=== PATIENT | female | born 1930 | race Hispanic/Latino ===

== ENCOUNTER 2017-02-21 11:07 | Emergency (ER) | payer MEDICARE, MEDICAID ==
[2017-02-21 11:08] VITALS: BMI 17.6
[2017-02-21 11:31] VITALS: RESP 20; TEMP 97.3; O2SAT 99
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
--- NOTE | 2017-02-21 13:41 | CT ---
PROCEDURE: CT HEAD WITHOUT CONTRAST. HISTORY: HEAD INJURY R/O BLEED/FRACTURE COMPARISON: Comparison/correlation made with concurrent CT scan orbits TECHNIQUE: Axial computed tomography images were obtained through the head/brain without intravenous contrast. Radiation dose: Total exam DLP = 392.16 mGy-cm. This CT exam was performed using one or more of the following dose reduction techniques: Automated exposure control, adjustment of the mA and/or kV according to patient size, and/or use of iterative reconstruction technique. FINDINGS: HEMORRHAGE: No acute parenchymal, subarachnoid or extra-axial hemorrhage. BRAIN: Mild chronic periventricular white matter ischemic changes. There also appear to be a few scattered chronic bilateral basal nuclei lacunar type infarcts. Moderate generalized volume loss. Vascular calcifications both carotid siphons VENTRICLES: Unremarkable. No hydrocephalus. CALVARIUM: No acute calvarial fracture seen. Bilateral nasal bone fracture deformities are present with a minor overlying soft tissue swelling and a small amount subcutaneous air. In addition, there is mild bilateral supraorbital/inferior frontal soft tissue swelling. A few tiny bubbles of subcutaneous air in the left supraorbital region suggests overlying laceration. . Additionally, there also appears to be some minor pre maxillary soft tissue swelling PARANASAL SINUSES: Well-developed and currently well-aerated. There are no fluid levels seen to suggest acute hemorrhage or sinusitis. Minimal mucosal thickening left maxillary antrum MASTOID AIR CELLS: Unremarkable as visualized. No inflammatory changes. OTHER FINDINGS: Orbits and contents unremarkable. Globes intact and lenses appropriately located. There are no retrobulbar hemorrhages or collections seen. IMPRESSION: No acute intracranial hemorrhage. Mild chronic white matter and basal nuclei ischemic changes. Moderate volume loss. Bilateral nasal bone fractures with minor overlying soft tissue swelling and small amount of subcutaneous air. Mild bilateral supraorbital/ inferior frontal soft tissue swelling with a few scattered bubbles of air left supraorbital region suggesting overlying laceration.
--- NOTE | 2017-02-21 13:43 | CT ---
PROCEDURE: CT scan orbits dated 02/21/2017 HISTORY: Left periorbital injury. Rule out fracture COMPARISON: Cord comparison made with concurrent CT scan brain TECHNIQUE: Helical/transaxial CT images of the orbits were obtained. Coronal and sagittal reformats were generated. . Radiation dose: Total exam DLP = 347.82 mGy-cm. This CT exam was performed using one or more of the following dose reduction techniques: Automated exposure control, adjustment of the mA and/or kV according to patient size, and/or use of iterative reconstruction technique. The current study reveals bilateral nasal bone fracture deformities with minor overlying soft tissue swelling and small amount subcutaneous air. Additionally, there is mild bilateral supraorbital/infer frontal soft tissue swelling. Few bubbles of subcutaneous air in the left supraorbital region suggest overlying laceration. There appears to be mild premaxillary soft tissue swelling. There are no other fractures. Bony orbits intact. The globes intact and lenses appropriately located. There are no retrobulbar hemorrhages or collections. Optic nerves and extraocular musculature unremarkable. . The visualized paranasal sinuses well-developed and currently well-aerated. There are no fluid levels seen to suggest acute hemorrhage or sinusitis. Minimal mucosal thickening left maxillary antrum. IMPRESSION: Bilateral nasal bone fracture deformities are present with a minor overlying soft tissue swelling and a small amount subcutaneous air. In addition, there is mild bilateral supraorbital/inferior frontal soft tissue swelling. A few tiny bubbles of subcutaneous air in the left supraorbital region suggests overlying laceration. . Additionally, there also appears to be some minor pre maxillary soft tissue swelling
[2017-02-21 15:41] VITALS: BP 134/72; PULSE 74
--- NOTE | 2017-02-21 15:48 | RAD ---
PROCEDURE: Radiographs of the pelvis and bilateral hips focal HISTORY: fall, hip pain COMPARISON: None. FINDINGS: BONES: No evidence of acute displaced fracture nor dislocation. . 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 SOFT TISSUES: Vascular calcifications are present. OTHER FINDINGS: None. No acute fracture nor dislocation. Mild DJD both hip joints. IMPRESSION: Limited study as described. No definitive evidence of acute displaced fracture nor dislocation. If symptoms persist or occult fracture suspected clinically recommend followup CT scan of the pelvis and hips. 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
== END 2017-02-21 17:56 | disposition home or self-care (01) ==
LOC: C.ER 11:07
DX: S02.2XXA Fracture of nasal bones, initial encounter for closed fracture (principal); S01.112A Laceration without foreign body of left eyelid and periocular area, initial encounter; W17.89XA Other fall from one level to another, initial encounter; Y92.129 Unspecified place in nursing home as the place of occurrence of the external cause; I10 Essential (primary) hypertension; F03.90 Unspecified dementia, unspecified severity, without behavioral disturbance, psychotic disturbance, mood disturbance, and anxiety

== ENCOUNTER 2017-03-17 03:57 | Emergency (ER) | payer MEDICARE, MEDICAID ==
[2017-03-17 03:58] VITALS: BMI 17.6
[2017-03-17 04:29] LABS: BASO % 0.2 % (0.0-2.0); EOS # 0.1 K/uL (0.0-0.7); EOS % 0.6 % (0.0-4.0); HEMATOCRIT 42.5 % (34.0-47.0); LYMPH # 4.2 K/uL (1.0-4.3); LYMPH % 30.6 % (20.0-40.0); MEAN CORPUSCULAR HEMOGLOBIN 30.2 pg (27.0-31.0); MEAN CORPUSCULAR HGB CONC 31.2 g/dL (33.0-37.0); MEAN PLATELET VOLUME 8.5 fL (7.2-11.7); MONO # 0.8 K/uL (0.0-0.8); NRBC % 0.2 % (0.0-2.0); RED CELL DISTRIBUTION WIDTH 14.6 % (11.5-14.5); WHITE BLOOD COUNT 13.7 K/uL (4.8-10.8)
[2017-03-17 04:31] LABS: VENOUS BLOOD GAS BASE EXCESS -17.9 mmol/L (0.0-2.0); VENOUS BLOOD GAS PCO2 80 mmHg (40-60); VENOUS BLOOD PH 6.91 (7.32-7.43)
[2017-03-17 04:37] LABS: INR 1.5
[2017-03-17 04:42] LABS: ALB/GLOB RATIO 0.9 (1.0-2.1); BILIRUBIN,TOTAL 0.8 mg/dL (0.2-1.3)
[2017-03-17 04:43] LABS: CALCIUM 8.7 mg/dl (8.6-10.4)
--- NOTE | 2017-03-17 04:46 | C.PDOC ---
History Of Present Illness Patient brought to ED by EMS from [facility] in a cardiac arrest. As per EMS they were called from [facility] for patient being tachypneic and with sob., on arrival at the ORpatient was in a-fib. Patient lost pulse twice and was intubated, cpr initiated and patient presented in the ED with CPR in progress. history obtained from ems. Time Seen by Provider: 03/17/17 04:12 Chief Complaint (Nursing): Cardiac Arrest History Per: EMS Reason For Code Blue: Full Arrest Circumstances: Brought To ED By EMS Arrest Witnessed By: Other CPR Initiated Prior To MD Arrival?: Yes Down-Time Before ACLS: Mins Treatment Initiated Prior To MD Arrival: Yes: CPR, BVM Ventilations, Intubation , Defibrillation, IVF, ACLS Medication Initiation, IV Access Medications Given Prior To MD Arrival: Yes: Epinephrine - Initial Findings Mentation: Unresponsive Respirations: None (Assisted) Pulse: None Rhythm: Asystole Past Medical History Reviewed: Historical Data, Nursing Documentation, Vital Signs - Medical History PMH: Dementia, HTN Surgical History: No Surg Hx - [facility] Procedures DEBRIDEMENT OF NAIL, NAIL BED OR NAIL FOLD (05/23/12) MAGNETIC RESONANCE IMAGING OF BRAIN AND BRAIN STEM (05/23/12) MAGNETIC RESONANCE IMAGING OF SPINAL CANAL (05/23/12) Family History: States: No Known Family Hx - Social History Hx Tobacco Use: No Hx Alcohol Use: No Hx Substance Use: No - Immunization History Hx Tetanus Toxoid Vaccination: (unk) Hx Influenza Vaccination: (unk) Hx Pneumococcal Vaccination: (unk) Review Of Systems Review Of Systems: ROS cannot be obtained secondary to pt's inabilty to answer questions. (Patient is unresponsive) Physical Exam - Physical Exam Appears: In Acute Distress, Other (unresponsive) Skin: Warm, Dry, Pale, No Rash Head: Normacephalic Eye(s): bilateral: Other (fixed and dilated pupils) Oral Mucosa: Dry Neck: Trachea Midline Chest: Symmetrical Cardiovascular: Rhythm Irregular, Other (Tachycardic) Respiratory: No Rales, Rhonchi (scattered), No Wheezing Gastrointestinal/Abdominal: Soft, No Tenderness, Distention, No Guarding, No Rebound, Other (obese abdomen) Back: Normal Inspection Extremity: Pedal Edema (trace) Extremity: Bilateral: Atraumatic Neurological/Psych: No Response To Commands Gait: Unable To Assess ED Course And Treatment - Laboratory Results Result Diagrams: 03/17/17 04:26 03/17/17 04:26 ECG: Interpreted By Me, Viewed By Me ECG Rhythm: Atrial Fibrillation (223), Nonspecific Changes Pulse Ox Interpretation: Abnormal - Radiology CXR: Interpreted by Me, Viewed By Me CXR Interpretation: Yes: Cardiomegaly, Other (ett in place, io left humeral head ) Progress Note: see code sheet. Patient pronounced at 4:40 AM Disposition Counseled Patient/Family Regarding: Studies Performed, Diagnosis - Disposition Disposition: WITH WITHOUT AUTOPSY Disposition Time: 04:40 Condition: Forms: [employer] (Telugu) - Clinical Impression Clinical Impression: Cardiac arrest Critical Care Time - Critical Care Note Total Time (in mins): 30 Documented critical care: time excludes all time spent performing seperately billable procedures. - Scribe Statement The provider has reviewed the documentation as recorded by the Scribe Julio C Desai All medical record entries made by the Scribe were at my direction and personally dictated by me. I have reviewed the chart and agree that the record accurately reflects my personal performance of the history, physical exam, medical decision making, and the department course for this patient. I have also personally directed, reviewed, and agree with the discharge instructions and disposition.
[2017-03-17 05:12] VITALS: PULSE 0
[2017-03-17 05:19] VITALS: BP 118/89
[2017-03-17 07:05] LABS: TROPONIN I 0.077 ng/mL (0.00-0.120)
--- NOTE | 2017-03-17 10:41 | RAD ---
PROCEDURE: CHEST RADIOGRAPH, 1 VIEW. Portable study 04:15. HISTORY: Chest pain COMPARISON: None available. FINDINGS: LUNGS: Clear. PLEURA: No pneumothorax or pleural fluid seen. CARDIOVASCULAR: No radiographic findings to suggest acute or significant cardiovascular disease. OSSEOUS STRUCTURES: No significant abnormalities. VISUALIZED UPPER ABDOMEN: Normal. OTHER FINDINGS: Endotracheal tube tip within 1 cm of the joaquim IMPRESSION: No active disease.
--- NOTE | 2017-03-19 08:45 | CARD ---
APPROVED REPORT EKG Measurement Heart [id number] <Conclusion> Sinus tach Right bundle branch block Cannot rule out Inferior infarct, age undetermined Abnormal ECG
== END 2017-03-17 08:25 ==
LOC: C.ER 03:57
DX: I46.9 Cardiac arrest, cause unspecified (principal)
CPT/HCPCS: 71010; 80053; 82803; 83880; 84484; 85025; 85610; 85730; 86850; 86900; 92950; 93005; 99285; J0171